=== PATIENT | female | born 1955 | race Caucasian/White ===

== ENCOUNTER 2017-05-07 07:57 | Day surgery (SDC) | payer BC ==
[~2017-05-07] VITALS: Ht 167.6 cm; Wt 86.2 kg
[~2017-05-07 07:57] MED LIST: AMLODIPINE5 MG PO; ASPIRIN EC81 MG PO; ATENOLOL25 MG PO; ATORVASTATIN CA40 MG PO; CATAPRES0.3 M1 PO; CLONAZEPAM1 M1 PO; CLONIDINE0.1 MG PO; FLONASE NASAL50 MCG; HYDROCHLOROT25 MG PO; HYDROCODONE/ACE1 TAB PO; HYZAAR1 TA1 PO; LOFIBRA160 MG PO; LORTAB 10-325 M1 TAB PO; METOPROLOL SUC100 MG PO; NIFEDIAC CC30 MG PO; SEROQUEL200 MG PO; SEROQUEL300 MG PO; SIMVASTATIN40 MG PO; TYLENOL 8 HOUR650 MG
[2017-05-07] MEDS ORDERED: HYDROCODONE/ACE1 TAB PO (10:10)
[2017-05-07 14:01] VITALS: BP 113/55
== END 2017-05-07 10:20 | disposition home or self-care (01) | DRG 552 ==
LOC: ORM 07:57
PROVIDERS: ATTEND Anesthesiology Pain Medicine
PROC: 3E0T3BZ Introduction of Anesthetic Agent into Peripheral Nerves and Plexi, Percutaneous Approach (ICD-10-PCS; principal; 2017-05-07)
PROC: 3E0T33Z Introduction of Anti-inflammatory into Peripheral Nerves and Plexi, Percutaneous Approach (ICD-10-PCS; 2017-05-07)
PROC: BR161ZZ Fluoroscopy of Lumbar Facet Joint(s) using Low Osmolar Contrast (ICD-10-PCS; 2017-05-07)
PROC: 3E0T3BZ Introduction of Anesthetic Agent into Peripheral Nerves and Plexi, Percutaneous Approach (ICD-10-PCS; 2017-05-07)
PROC: 3E0T33Z Introduction of Anti-inflammatory into Peripheral Nerves and Plexi, Percutaneous Approach (ICD-10-PCS; 2017-05-07)
DX: M54.5 Low back pain (principal); M41.9 Scoliosis, unspecified

== ENCOUNTER 2017-06-04 06:44 | Day surgery (SDC) | payer BC ==
[~2017-06-04] VITALS: Ht 167.6 cm; Wt 81.6 kg
[2017-06-04 08:55] VITALS: BP 127/58
[2017-06-04] MEDS ORDERED: HYDROCODONE/ACE1 TAB PO (09:20)
== END 2017-06-04 09:30 | disposition home or self-care (01) | DRG 552 ==
LOC: ORM 06:44
PROVIDERS: ATTEND Anesthesiology Pain Medicine
PROC: 3E0T3BZ Introduction of Anesthetic Agent into Peripheral Nerves and Plexi, Percutaneous Approach (ICD-10-PCS; principal; 2017-06-04)
PROC: 3E0T33Z Introduction of Anti-inflammatory into Peripheral Nerves and Plexi, Percutaneous Approach (ICD-10-PCS; 2017-06-04)
PROC: BR161ZZ Fluoroscopy of Lumbar Facet Joint(s) using Low Osmolar Contrast (ICD-10-PCS; 2017-06-04)
PROC: 3E0T3BZ Introduction of Anesthetic Agent into Peripheral Nerves and Plexi, Percutaneous Approach (ICD-10-PCS; 2017-06-04)
PROC: 3E0T3BZ Introduction of Anesthetic Agent into Peripheral Nerves and Plexi, Percutaneous Approach (ICD-10-PCS; 2017-06-04)
PROC: 3E0T33Z Introduction of Anti-inflammatory into Peripheral Nerves and Plexi, Percutaneous Approach (ICD-10-PCS; 2017-06-04)
PROC: 3E0T33Z Introduction of Anti-inflammatory into Peripheral Nerves and Plexi, Percutaneous Approach (ICD-10-PCS; 2017-06-04)
DX: M54.5 Low back pain (principal); M41.9 Scoliosis, unspecified